=== PATIENT | female | born 1955 | race Caucasian/White ===

== ENCOUNTER → 2017-07-19 09:56 | Outpatient (CLI) | payer OTHER, SELFPAY ==
--- NOTE | 2017-07-19 10:00 | ECHOD_ITS ---
Reason For Study: MVP Procedure This was a 2D Doppler, Color Flow transthoracic echocardiogram. Exam performed in department. Left Ventricle Normal LV size. Left ventricular systolic function is normal. The estimated ejection fraction is 60 %. No regional wall motion abnormalities noted. Right Ventricle Normal RV size. Normal systolic function. Atria Normal left atrium. Normal right atrium. Mitral Valve Normal mitral valve. Mild (1+) eccentric mitral valve insufficiency. Tricuspid Valve Normal tricuspid valve. Mild (1+) tricuspid valve insufficiency. Pulmonary artery systolic pressure is 36 mmHg. Aortic Valve Trisinus/trileaflet aortic valve. Pulmonic Valve Normal pulmonic valve. Great Vessels Normal aortic root. The pulmonary artery is normal size. Normal inferior vena cava. Pericardium/Pleural No pericardial effusion. MMode/2D Measurements & Calculations LVIDd: 4.6 cm IVSd: 0.58 cm Ao root diam: 2.6 cm LVIDs: 2.8 cm LVPWd: 0.55 cm LA dimension: 3.9 cm RVDd: 3.0 cm FS: 38.7 % LAV(MOD-bp): 42.8 ml LA A4 area: 15.7 cm2 RA A4 area: 11.6 cm2 LAV(MOD-bp) Indexed: 26.2 ml/m2 LAV(MOD-sp2): 44.2 ml LAV(MOD-sp4): 38.4 ml Doppler Measurements & Calculations MV E max juanito: 93.8 cm/sec Lat Peak E' Juanito: 8.6 cm/sec Med Peak E' Juanito: 6.6 cm/sec MV A max juanito: 84.7 cm/sec E/E' lat: 10.8 E/E' med: 14.3 MV E/A: 1.1 Ao V2 max: 145.6 cm/sec LV V1 max: 111.6 cm/sec PA V2 max: 133.9 cm/sec Ao max P.5 mmHg LV V1 max P.0 mmHg Ao V2 mean: 99.5 cm/sec Ao mean P.3 mmHg Ao V2 VTI: 31.4 cm TR max juanito: 281.0 cm/sec TR max P.6 mmHg Interpretation Summary Normal LV size. Left ventricular systolic function is normal. The estimated ejection fraction is 60 %. Mild (1+) eccentric mitral valve insufficiency. Pulmonary artery systolic pressure is 36 mmHg. Ordering Physician: Jaron Roberts Referring Physician: Patrizia Nova Performed By: Tere Lamar, MARILEE, RVT
== END ==
PROVIDERS: Family Provider Internal Medicine; PCP Internal Medicine; Visit Provider Internal Medicine Cardiovascular Disease
DX: I10 Essential (primary) hypertension (principal); R00.2 Palpitations; E78.00 Pure hypercholesterolemia, unspecified
CPT/HCPCS: 93306

== ENCOUNTER → 2018-01-06 14:19 | Outpatient (CLI) | payer OTHER, SELFPAY ==
--- NOTE | 2018-01-06 14:25 | BD_ITS ---
STUDY: DUAL ENERGY X-RAY ABSORPTIOMETRY / DXA REASON FOR EXAM: Female, 62 years old. The patient is postmenopausal. Loss of height. TECHNIQUE: Bone Mineral Density (BMD) measurements of lumbar spine and bilateral hips were obtained. COMPARISON: Comparison is made with prior study dated December 12, 2014. FINDINGS: Lumbar Spine (L1-L4): g/cm2 (1.061) / T-score (-1.0) / Z-score (0.2) Findings are suggestive of normal bone density with a low fracture risk. Left Femur Total: g/cm2 (0.975) / T-score (-0.3) / Z-score (0.7) Left Femoral Neck: g/cm2 (0.807) / T-score (-1.7) / Z-score (-0.4) Right Femur Total: g/cm2 (0.924) / T-score (-0.7) / Z-score (0.3) Right Femoral Neck: g/cm2 (0.800) / T-score (-1.7) / Z-score (0.5) The T-Scores on the most recent prior examination were: Lumbar Spine (L1-L4): There has been improvement of bone density since the previous examination. Left Femur Total: which represents a worsening of 4.8%. Right Femur Total: which represents a worsening of 7.1%. BD/Dexa Bone Density Study IMPRESSION: The patient is considered osteopenic as outlined below according to World Edy Organization (WHO) criteria with a moderate fracture risk. There has been worsening of bone density since the previous examination. Reference Information: The T-score is the number of standard deviations above or below the standard which is normal for young adults at their peak bone mineral density. The World Health Organization (WHO) interprets the T-scores as follows: Above -1 Normal bone density Between -1 and -2.5 Osteopenia Equal to / or below -2.5 Osteoporosis As a practical clinical guideline, osteopenia may be graded as follows: Mild -1 through -1.5 Moderate -1.6 through -2.0 Severe -2.1 through -2.4 The Z-score is the number of standard deviations above or below age-matched controls. A Z-score of less than -1.5 would be considered abnormal. References: 1. NIH Osteoporosis and Related Bone Diseases http://www.osteo.org 2. International Society for Clinical Densitometry http://www.iscd.org 3. National Osteoporosis Foundation http://www.nof.org Electronically Signed: Az Ricardo MD at 15:32 EDT Tel [phone], Service support ,
== END ==
PROVIDERS: Family Provider Internal Medicine; PCP Internal Medicine; Visit Provider Internal Medicine
DX: Z78.0 Asymptomatic menopausal state (principal)
CPT/HCPCS: 77080

== ENCOUNTER 2018-02-18 08:00 | Outpatient (RCR) | payer OTHER, SELFPAY ==
--- NOTE | 2018-01-19 09:57 | HP.PTEVAL ---
Patient's Visit Information BERNARD EMERY is a 62 year old F referred to Physical Therapy by Patrizia Nova with a diagnosis of Bilateral Hip Pain. Date of Evaluation: 01/19/18 Physical Therapist: Nicole Pham - Visit Plan Frequency: 2x /Week Duration: 4 Weeks Plan: Focus on LE and core s/s- modality as needed - Subjective Subjective: Patient reports lots of hip pain bilateral- insidious onset starting Late October-Took a vacation in November and did a lot of walking and aggravated it. Wears special shoes when she is walking a lot. On the drive home she noticed that her foot was swollen but not painful-it went away. Both are the same amount of pain- right is more deep and juts down in the groin- sometimes the pain radiates to the knee. Does have discomfort in the left low back- will flare up when she gardens or twists. Pain is mostly located on the bursitis. Sleep: wakes her up at night. Worst: 10/10 Agg: walking, sitting for long periods of time and goes to stand up. Best: 0/10 Eases: Tylenol, rub them, or movement. Describes the pain as dull and achy and hot feeling. No N/T in the LE. No loss or change in bowel or bladder. X-rays at [facility]- no injection or medications from PT. 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 Likes to be active- walks with her sister but has been sedentary lately. PMhx: HTN Meds: cozar, atenalol, crestor, levothyroxin, prilosec, asprin - Objective Posture: Fh, RS- can correct with verbal cues. Gait: no deviation noted. Stairs: no deviation noted with asc/desc recip 8 stairs no HR. HR/TR: able. SLS: 30 sec without LOB. Sensation/ Reflex: wnl. palpation: tender along greater troch and into the gluts to the sacrum. ROM: WNl with the exception of IR of the right hip: decreased by 75%. Strength: Ankle: 5/5 knee: 5/5, Hip: 4/5 Core: fair minus. Pelvic alignment: WNL LLD: none - Goals Goal 1:: Patient will be I with HEP and progression Goal Time Frame: 4-6 Weeks Goal 2:: Patient will maintain proper posture t/o tx session to demo increased core s/s Goal Time Frame: 4-6 Weeks Goal 3:: Patient will report 0/10 pain for 1 week Goal Time Frame: 4-6 Weeks Goal 4:: Patient will demo 5/5 strength in LE where deficit Goal Time Frame: 4-6 Weeks - Rehabilitation Potential Physical Therapy Diagnosis: Patient presents with hypomobility- she has decreased ROM, strength and muscular endurance leading to increased pain with ADL's Rehabilitation Potential: Fair - Anticipated Interventions Patient/Client Instruction: Educate patient on: Benefits of Fitness Program Therapeutic Exercise to Include: Strength training, Endurance training, Balance training, Agility training, Body mechanics, Postural training, Flexibilty training, Gait and locomotor training, Dynamic Lumbar Stabilization TENS: Yes Cryotherapy (ice pack, ice massage): Yes Thermo therapy (hot pack): Yes Ultrasound (thermal/non thermal): Yes For the Purpose of:: To decrease pain Thank you for the opportunity to evaluate your patient. For Medicare and Medicare HMO plans, please review the plan of care and approve it. It will need to be FAXED BACK to us at [phone] for Medicare purposes. Please let me know if there are questions or concerns regarding this plan of care. Physician Signature: Date:
--- NOTE | 2018-02-18 08:25 | HP.PTDCSUM_ITS ---
HP - PT D/C Summary It has been my pleasure to treat BERNARD E EMERY under orders from Patrizia Nova , for the diagnosis of Bilateral Hip Pain for a total of 8 visit(s). Discharge Date: Please see the following information for a summary of their discharge status. - Subjective Subjective: Feels that she is improved and the right hip is less catchy and is gaining some strength. Worst: 06/16- its definatly better- [place] Sleep is sometimes a little more challenging when she has been moving around a lot. Feels that she wants to try a home exercise program and work on her endurance. - Pain RIGHT HIP Pain Intensity (Out of 10): 0 LEFT HIP Pain Intensity (Out of 10): 0 - Overall Improvement % Improvement: 40 - Objective Objective/Function: Posture: slight kyphosis. Gait: WNL. AROM: lumbar flex. WFL, lat. flex bilat. WFL slight stiffness reported, and rotation bilat. WFL slight stiffness to R, lumbar ext. slight decrease. R Hip decreased IR. Strength: LE WFL throughout - Goals Goal 1:: Patient will be I with HEP and progression Goal Progress: Goal Met Goal 2:: Patient will maintain proper posture t/o tx session to demo increased core s/s Goal Progress: Goal Met Goal 3:: Patient will report 0/10 pain for 1 week Goal Progress: Progressing Goal 4:: Patient will demo 5/5 strength in LE where deficit Goal Progress: Goal Met - Plan Plan: Discharge to I HEP. - D/C Information If there are questions or concerns regarding this patient's physical therapy, please feel free to call me at [phone]. Thank you for the referral of this patient. Sincerely, Nicole Pham
== END 2018-02-18 08:43 | disposition home or self-care (01) ==
LOC: PT 08:00
PROVIDERS: Family Provider Internal Medicine; PCP Internal Medicine; Visit Provider Internal Medicine
DX: M25.551 Pain in right hip (principal); M25.552 Pain in left hip; M54.31 Sciatica, right side; R10.30 Lower abdominal pain, unspecified
CPT/HCPCS: 97110; 97113; 97116; 97162; 97164

== ENCOUNTER → 2018-07-05 09:37 | Outpatient (CLI) | payer OTHER, SELFPAY ==
[2018-07-05 09:13] VITALS: BMI 30.7
[2018-07-05 11:00] LABS: Anion Gap 7 (5-15); BUN 16 mg/dL (7-18); BUN/Creat Ratio 20.6 RATIO (10-20); Calcium,Total 9.5 mg/dL (8.5-10.1); Chloride 106 mmol/L (98-107); Creatinine, Serum 0.78 mg/dL (0.55-1.02); EST Glomerular Filtration Rate 80 mL/min (>60); Est Glom Filt Rate - Afr Amer 97 mL/min (>60); Glucose 87 mg/dL (74-106); Potassium 4.4 mmol/L (3.5-5.1); Sodium Level 141 mmol/L (136-145)
== END ==
PROVIDERS: Family Provider Internal Medicine; PCP Internal Medicine; Referring Provider Internal Medicine Cardiovascular Disease; Visit Provider Internal Medicine Cardiovascular Disease
DX: I10 Essential (primary) hypertension (principal); R00.2 Palpitations
CPT/HCPCS: 36415; 80048; 84436; 84443

== ENCOUNTER 2019-01-12 19:25 | Emergency (ER) | payer OTHER, SELFPAY ==
[2018-07-05 09:13] VITALS: BMI 30.7
[2019-01-12 19:26] VITALS: BP 163/88; PULSE 82; RESP 16; TEMP 36.7; O2SAT 97; BMI 30.2
--- NOTE | 2019-01-12 19:52 | EKG12_ITS ---
Test Reason : GENERAL ILLNESS Blood Pressure : / mmHG Vent. Rate : 078 BPM Atrial Rate : 078 BPM P-R Int : 130 ms QRS Dur : 082 ms QT Int : 378 ms P-R-T Axes : 067 008 051 degrees QTc Int : 430 ms Normal sinus rhythm Normal ECG Confirmed by RUDY RIVERA ([id number]), mapping editor MARYJANE HOWARD ([id number]) on 01/16/2019 1:16:14 PM Referred By: ADRIAN Confirmed By:RUDY RIVERA
--- NOTE | 2019-01-12 20:25 | RAD_ITS ---
STUDY: X-RAY - ACUTE ABDOMINAL SERIES REASON FOR EXAM: Female, 63 years old. Discomfort. Bloating. TECHNIQUE: Single view of the chest. Supine, 1 view(s) of the abdomen were obtained. COMPARISON: Chest, May 30, 2017. FINDINGS: The lungs are well-expanded. There is a stable calcified granuloma in the right lung base. There is no new infiltrate or mass. Normal size heart. Normal mediastinum and esha. Normal visualized pulmonary arteries. There is atherosclerotic calcification of the aortic arch with tortuosity. There is a non-specific bowel gas pattern. . Seen throughout the colon. There is no small bowel dilatation. There is no colonic distention. There is no free air. The soft tissue structures of the abdomen and pelvis are unremarkable. Phleboliths are seen in the pelvis. Normal visualized osseous structures. RAD/Acute Abdomen Inc Chest IMPRESSION: 1. Right lower lobe calcified granuloma. There is no acute vertebral pulmonary findings. 2. No evidence of acute intra-abdominal process. Electronically Signed: Cesar Alvarado DO at 20:40 EDT Tel [phone], Service support ,
[2019-01-12 20:32] LABS: Bacteria 0 SEEN /hpf (None Seen); Mucous, Urine 0 SEEN /hpf (<or=2+); Red Blood Cells-Urine 0 SEEN /hpf (0-5); Squamous Epithelial Cells - UA 0 SEEN /hpf (5-10); White Blood Cells 0 SEEN /hpf (0-5)
[2019-01-12 20:40] LABS: Absolute Lymphocyte Count 2.15 X10^3/uL (0.83-4.51); Absolute Neutrophil Count 5.4 X10^3/uL (2.0-7.7); Basophil# 0.03 X10^3/uL; Basophil% 0.4 % (0-1); Eosinophil# 0.09 X10^3/uL; Eosinophils% 1.1 % (0-5); Hematocrit 36.7 % (37-47); Hemoglobin 12.2 g/dL (12.0-15.0); Lymphocyte # 2.15 X10^3/ul (4.0); Lymphocyte % 26.6 % (19-41); Mean Corp Hgb Conc 33.2 g/dL (32-36); Mean Corpuscular Hgb 29.2 pg (27.0-32.0); Mean Corpuscular Volume 87.8 fL (81-99); Mean Platelet Vol. 10.8 fl (6.2-12.0); Monocyte# 0.42 X10^3/uL; Monocyte% 5.2 % (0-10); NRBC Flagged by Analyzer 0 % (0-5); Neutrophil # 5.37 X10^3/uL (2.7-7.7); Neutrophil % 66.5 % (47-70); Platelet Count 282 K/mm3 (150-450); RBC Distribution Width CV 12.6 % (11.6-14.6); RBC Distribution Width SD 40.5 fl (35.1-43.9); Red Blood Count 4.18 M/mm3 (4.2-5.4); White Blood Count 8.1 K/mm3 (4.4-11.0)
[2019-01-12 20:43] LABS: Color, Urine Straw (Yellow); Glucose, Dipstick Normal (Normal); Ketone-Dipstick Negative (Negative); Leukocyte Esterase-Dipstick Negative /ul (Negative); Nitrite-Dipstick Negative (Negative); Occult Blood-Urine Negative /ul (Negative); Protein-Dipstick Negative (Negative); Urine Bilirubin Dipstick Negative (Negative); Urine Clarity Clear (Clear); Urine Urobilinogen Normal (Normal); Urine pH 6.5 (5.0 - 8.0)
[2019-01-12 20:55] LABS: Anion Gap 6 (5-15); BUN 15 mg/dL (7-18); BUN/Creat Ratio 17.5 RATIO (10-20); Calcium,Total 9.7 mg/dL (8.5-10.1); Chloride 106 mmol/L (98-107); Creatinine, Serum 0.86 mg/dL (0.55-1.02); EST Glomerular Filtration Rate 72 mL/min (>60); Est Glom Filt Rate - Afr Amer 87 mL/min (>60); Estimated Creatinine Clearance 73.79 ml/min; Glucose 93 mg/dL (74-106); Potassium 3.8 mmol/L (3.5-5.1); Sodium Level 140 mmol/L (136-145)
--- NOTE | 2019-01-12 21:10 | ED.DCSUM_ITS ---
History of Present Illness Chief Complaint: General Illness Detail of Chief Complaint: High blood pressure, abdominal bloating and felt funny drinking liquid Informant: Patient Onset: Days Context: Gradual Onset Timing: - - Read HPI Quality: Read HPI Location: Generalized abdominal, Current Severity: Mild Maximum Severity: Moderate Worsened by: Nothing Relieved by: Nothing Associated Symptoms: Possible nausea Narrative: Patient is a 63-year-old woman with a history of hypertension who presents because her blood pressure was 200/100. She denies headache. Denies visual, ocular auditory symptoms. No trouble with speech or swallowing. She states when she drinks liquids she felt funny. She had no pain. She did not have difficulty swallowing with drooling or choking. She denied cardiac or respiratory symptoms. She does have history of PSVT. There is family history of coronary disease. She denies nausea, vomiting diarrhea. She denies constipation. She denies dysuria, frequency, urgency or hematuria. She denies anorexia. There is no history of trauma. She denies weight gain or weight loss. She denies night sweats. She denies back pain. Prior similar symptoms: No Recent Illness/Hospitalization: No - Past Medical History (1) Elevated blood-pressure reading without diagnosis of hypertension Status: Acute (2) Hypercholesterolemia Status: Chronic (3) Intermittent palpitations Status: Chronic (4) Obesity (BMI 30.0-34.9) Status: Chronic (5) Paroxysmal supraventricular tachycardia Status: Chronic Past Medical History - Allergies and Home Meds Allergies/Adverse Reactions: Allergies niacin [From Niaspan Extended-Release] Adverse Reaction (Verified 01/12/19 19:29) Shortness of breath Primary Care Physician: Patrizia Nova MD [Primary Care Provider] - Prior records reviewed: Yes Surgical History: noncontributory Lives: Spouse/ Significant Other Smoking Status: Never smoker Alcohol: None Drugs: None Review of Systems General: Denies: Chills, Fever, Sweats Eyes: Denies: Visual changes - bilaterally, Blurred Vision - bilaterally, Diplopia ENT: Denies: Bilateral ear pain, Rhinorrhea, Sore throat Cardiovascular: Denies: Chest pain, Palpitations, Heart racing Respiratory: Denies: Dyspnea, Cough, Dyspnea on exertion Gastrointestinal: Reports: Abdominal pain. Denies: Nausea, Vomiting, Diarrhea, Constipation, Melena, Hematochezia, -, - Genitourinary: Denies: Dysuria, Hematuria, Frequency Musculoskeletal: Denies: Myalgias, Arthralgias, Neck pain, Back pain, Swelling, Extremity Pain Skin: Denies: Rash, Abrasions, Wounds Neurological: Denies: Headache, Weakness, Numbness Psych: Denies: Depression Endocrine: Reports: - - Does report nocturia. Denies: Polyuria, Polydipsia Hematologic: Denies: Easy bruising, Easy bleeding Allergy: Denies: Uticaria, Swelling of the mouth, Swelling of the tongue Physical Exam Vital Signs/Narrative: Vital Signs Temp Pulse Resp BP Pulse Ox 01/12/19 19:26 98.0 F 82 16 163/88 H 97 Inital Vital Signs reviewed: Yes General: Well nourished, Well developed, No Acute Distress Head: Normocephalic, Atraumatic Eyes: Perrl, EOMI. Negative for: Pale conjunctiva, Scleral icterus ENT: Moist mucous membranes, No rhinorrhea, TM's clear Neck: Supple, Nontender Cardiovascular: Regular rate, Regular rhythm, No murmurs, Normal S1, Normal S2 Respiratory: No distress, CTA bilaterally, Chest nontender Abdomen: Soft, Nontender, Nondistended, Normal bowel sounds, No masses, - - Abdo men is slightly tympanitic. Rectal: Deferred Back: Nontender, Normal Inspection. Negative for: CVA tenderness Extremities: Nontender, No edema Skin: Normal color, No rash, No Trauma. Negative for: Cyanosis, Diaphoresis, Jaundice Neurological: Alert, Oriented x3, Cranial nerves II-XII grossly intact, Normal Strength, Normal Sensation, Normal DTR, Normal Gait Psychological: Normal affect, Normal Mood Diagnostic/Tx/Re-eval Chest X-Ray - ED: Read by Radiologist Impressions Acute Abdomen Series 01/12/19 20:25 IMPRESSION: 1. Right lower lobe calcified granuloma. There is no acute vertebral pulmonary findings. 2. No evidence of acute intra-abdominal process. Electronically Signed: Cesar Alvarado DO at 20:40 EDT Tel [phone], Service support , 01/12/19 20:25 Acute Abdomen Inc Chest [RAD] Stat Laboratory Results 01/12/19 01/12/19 01/12/19 20:17 20:17 20:20 WBC 8.1 RBC 4.18 L Hgb 12.2 Hct 36.7 L MCV 87.8 MCH 29.2 MCHC 33.2 RDW Std Deviation 40.5 RDW Coeff of [place] 12.6 Plt Count 282 MPV 10.8 Immature Gran % (Auto) 0.200 Neut % (Auto) 66.5 Lymph % (Auto) 26.6 [place] % (Auto) 5.2 Eos % (Auto) 1.1 Baso % (Auto) 0.4 Absolute Neuts (auto) 5.4 Absolute Lymphs (auto) 2.15 Nucleated RBC % 0 Sodium 140 Potassium 3.8 Chloride 106 Carbon Dioxide 28.0 Anion Gap 6 BUN 15 Creatinine 0.86 Estim Creat Clear Calc 73.79 Est GFR (MDRD) Af Amer 87 Est GFR (MDRD) Non-Af 72 BUN/Creatinine Ratio 17.5 Glucose 93 Calcium 9.7 Urine Color Straw Urine Clarity Clear Urine pH 6.5 Ur Specific [place] 1.010 Urine Protein Negative Urine Glucose (UA) Normal Urine Ketones Negative Urine Occult Blood Negative Urine Nitrite Negative Urine Bilirubin Negative Urine Urobilinogen Normal Ur Leukocyte Esterase Negative Urine RBC 0 SEEN Urine WBC 0 SEEN Ur Squamous Epith Cells 0 SEEN Urine Bacteria 0 SEEN Urine Mucus 0 SEEN Three-view x-ray of the abdomen was reviewed by me. The film was interpreted per my review. There is increased fecal stasis. No acute abnormality is noted. There is no evidence of endorgan injury. - Medical Decision Making Because patient complains of bloatedness she is distended abdominal series was obtained. There is no evidence of ileus, obstruction or any significant abnormality. There is increased fecal stasis noted right side. Blood work is unremarkable with no evidence of endorgan injury. Most recent blood pressure is 160 systolic. This does not mandate immediate urgent therapy. Patient was informed of her results. ED Disposition - Plan for ED Patient: Disposition: Home or Assisted Living Diagnosis: Generalized abdominal discomfort, Constipation, Hypertension Instructions: HYPERTENSION, Established Referrals: Patrizia Nova MD [Primary Care Provider] - 5-7 Days Additional Instructions: Increase fiber in your diet. Recommend Metamucil or MiraLAX 2-3 times a day for the next week.
[2019-01-12 21:37] VITALS: BP 152/82; RESP 16
== END 2019-01-12 21:38 | disposition home or self-care (01) ==
PROVIDERS: Emergency Provider Emergency Medicine; Family Provider Internal Medicine; PCP Internal Medicine
DX: R10.84 Generalized abdominal pain (principal); K59.00 Constipation, unspecified; I10 Essential (primary) hypertension; R35.1 Nocturia; E66.9 Obesity, unspecified; I47.1 Supraventricular tachycardia; E78.00 Pure hypercholesterolemia, unspecified; Z79.899 Other long term (current) drug therapy
CPT/HCPCS: 74022; 80048; 81001; 85025; 93005; 99283; A4216

== ENCOUNTER → 2019-07-04 12:08 | Outpatient (CLI) | payer OTHER, SELFPAY ==
[2019-07-04 08:21] VITALS: BMI 30.9
[2019-07-04 14:26] LABS: AST(SGOT) 20 U/L (15-37); Alanine Aminotransfer ALT/SGPT 34 U/L (13-56); Albumin, Serum 4.4 g/dL (3.2-5.0); Alkaline Phosphatase 93 U/L (45-117); Bilirubin, Direct 0.15 mg/dL (0.00-0.30); Cholesterol 255 mg/dL (200); Globulin 3.5 g/dL (2.2-4.2); High Density Lipoprotein 59 mg/dL; Protein, Total 7.9 g/dL (6.4-8.2); Triglycerides 100 mg/dL; Very Low Density Lipoprotein 20 mg/dL (5-40)
== END ==
PROVIDERS: PCP Internal Medicine; Referring Provider Internal Medicine Cardiovascular Disease; Visit Provider Internal Medicine Cardiovascular Disease
DX: E78.5 Hyperlipidemia, unspecified (principal)
CPT/HCPCS: 36415; 80061; 80076

== ENCOUNTER → 2019-07-21 12:00 | Outpatient (CLI) | payer OTHER, SELFPAY ==
[2019-07-04 08:21] VITALS: BMI 30.9
--- NOTE | 2019-07-21 12:13 | BI_ITS ---
MAMMOGRAPHY - BILATERAL SCREENING REASON FOR EXAM: Female, 63 years old. Routine annual screening examination. PERTINENT HISTORY: Aunt with breast cancer. Remote bilateral breast reduction surgery. TECHNIQUE: Digital bilateral breast rashuan (3D mammographic acquisition) in the CC and MLO projections. 2-D mediolateral oblique (MLO) and craniocaudad (CC) views of both breasts were obtained. CAD: Full Field Digital Mammography with Computer Added Detection was performed. COMPARISON: Comparison is made with prior examination dated March 18, 2017 and December 12, 2014. FINDINGS: Breast Composition: The breasts are heterogeneously dense, which may obscure small masses. There are no dominant masses or suspicious calcifications. Stable small benign-appearing bilateral axillary lymph nodes. No other significant abnormalities are identified. There has been no significant change since the prior study. BI/SCREEN MAMM (CAD) W/RASHAUN BILAT IMPRESSION: Stable bilateral screening mammogram. Yearly follow-up mammogram recommended. (A) ASSESSMENT CATEGORY: BIRADS Category 2: Benign. A letter regarding these results will be sent to the patient by the facility within 30 days. Approximately 10% of breast cancers are not detected by mammography. A normal mammogram should not delay biopsy of a clinically suspicious abnormality. [id number] Electronically Signed: Az Ricardo, at 13:00 EST , Service support ,
== END ==
PROVIDERS: PCP Internal Medicine; Referring Provider Internal Medicine; Visit Provider Internal Medicine
DX: Z12.31 Encounter for screening mammogram for malignant neoplasm of breast (principal)
CPT/HCPCS: 77063; 77067

== ENCOUNTER 2021-04-02 23:32 | Observation (INO) | payer OTHER, SELFPAY ==
[2021-04-02 23:33] VITALS: BP 189/83; PULSE 86; RESP 18; TEMP 36.6; O2SAT 100; BMI 31.3
[2021-04-02 23:42] VITALS: BP 171/92; PULSE 99; RESP 14; O2SAT 100
--- NOTE | 2021-04-02 23:44 | EKG12_ITS ---
Test Reason : CP Blood Pressure : / mmHG Vent. Rate : 096 BPM Atrial Rate : 096 BPM P-R Int : 138 ms QRS Dur : 084 ms QT Int : 378 ms P-R-T Axes : 067 015 075 degrees QTc Int : 477 ms Normal sinus rhythm ST & T wave abnormality, consider lateral ischemia Prolonged QT Abnormal ECG Confirmed by TED GRIMM, ELIAN ([id number]), editor at large MARYJANE HOWARD ([id number]) on 04/04/2021 9:34:05 AM Referred By: ANALI Confirmed By:ELIAN JEAN MD
--- NOTE | 2021-04-02 23:44 | RAD_ITS ---
STUDY: X-RAY CHEST REASON FOR EXAM: Female, 65 years old. chest pain TECHNIQUE: 1 view COMPARISON: 01/12/2019 FINDINGS: Cardiomediastinal silhouette is unremarkable. Costophrenic angles are sharp. Small calcified granulomas noted in the right lung base. Lungs are otherwise clear. The trachea is midline. There is no pneumothorax. The bones are grossly intact. RAD/Chest 1 View (Portable) IMPRESSION: No acute cardiopulmonary process. Electronically Signed: Glenroy Best MD at 1:03 EDT Tel , Service support ,
[2021-04-02 23:50] LABS: Absolute Neutrophil Count 4.8 X10^3/uL (2.0-7.7); Basophil# 0.03 X10^3/uL; Basophil% 0.4 % (0-1); Eosinophil# 0.15 X10^3/uL; Eosinophils% 1.9 % (0-5); Hematocrit 37.8 % (37-47); Hemoglobin 12.5 g/dL (12.0-15.0); Mean Corp Hgb Conc 33.1 g/dL (32-36); Mean Corpuscular Hgb 28.2 pg (27.0-32.0); Mean Corpuscular Volume 85.3 fL (81-99); Mean Platelet Vol. 10.6 fl (6.2-12.0); Monocyte# 0.56 X10^3/uL; NRBC Flagged by Analyzer 0 % (0-5); Neutrophil # 4.84 X10^3/uL (2.7-7.7); Neutrophil % 60.4 % (47-70); Platelet Count 298 K/mm3 (150-450); RBC Distribution Width CV 12.5 % (11.6-14.6); RBC Distribution Width SD 38.7 fl (35.1-43.9); Red Blood Count 4.43 M/mm3 (4.2-5.4)
[2021-04-02] MEDS: Aspirin 81 MG TAB.CHEW 324 MG PO (23:55)
[2021-04-03] VITALS (9 sets, daily range): BP systolic 133–160; BP diastolic 60–87; PULSE 63–101; RESP 14–20; TEMP 35.8–37.3; O2SAT 98–100; BMI 31.3
[2021-04-03 00:17] LABS: Anion Gap 8 (5-15); BUN 14 mg/dL (7-18); Calcium,Total 9.8 mg/dL (8.5-10.1); Chloride 108 mmol/L (98-107); Creatinine, Serum 0.78 mg/dL (0.55-1.02); EST Glomerular Filtration Rate 80 mL/min (>60); Est Glom Filt Rate - Afr Amer 96 mL/min (>60); Estimated Creatinine Clearance 79.29 ml/min; Glucose 112 mg/dL (74-106); Potassium 3.5 mmol/L (3.5-5.1); Sodium Level 142 mmol/L (136-145); Troponin-I HS 5 pg/mL (3.0-54.0)
--- NOTE | 2021-04-03 00:33 | ED.VIS.CHEST ---
HPI History of Present Illness Chief Complaint: Chest Pain Informant: patient Narrative Narrative: Patient presents with elevated blood pressures. She thinks she was about 190s. She checked it because she just did not feel right today. She developed episode of chest pressure that radiated to the left side of her neck this evening. It is better now but not completely gone. She might of had very mild dyspnea with this. No nausea vomiting or diaphoresis. No back pain. She had an episode similar to this about a week ago that resolved on its own. She does not have a history of known heart disease. She had a heart catheterization but she thinks it was probably 20 years ago. There is a family history of aortic dissection Marfan's. However, she just saw a specialist up in [place] earlier this year in July. They did extensive evaluation including CAT scan of the chest. They see no indication of Marfan's or aortic root problems in her whatsoever. She does have a history of high blood pressure and cholesterol. Non-smoker. [facility] Medical History (Updated 04/03/21 @ 01:[address] Long Musa MD) Daytime somnolence Elevated blood-pressure reading without diagnosis of hypertension Essential (primary) hypertension Generalized anxiety disorder Hiatal hernia Hyperlipidemia Hypothyroid LPRD (laryngopharyngeal reflux disease) Mitral valve disorder Obesity (BMI 30.0-34.9) Paroxysmal supraventricular tachycardia Snoring Snoring Vitamin D deficiency Home Medications omeprazole 20 mg capsule,delayed release 20 mg PO QDAY 06/30/17 [History Last Taken Unknown] rosuvastatin 20 mg tablet 40 mg PO QDAY tab 07/05/18 [History Last Taken Unknown] levothyroxine 75 mcg tablet 75 mcg PO DAILY tab 07/04/19 [History Last Taken Unknown] atenolol 25 mg PO DAILY 04/02/21 [History Last Taken Unknown] coenzyme Q10 200 mg PO DAILY 04/02/21 [History Last Taken Unknown] losartan 75 mg PO DAILY 04/02/21 [History Last Taken Unknown] Allergy/AdvReac Type Severity Reaction Status Date / Time niacin AdvReac Shortness Verified 04/02/21 23:35 [From Niaspan of breath Extended-Release] Family History Mother Aortic aneurysm and dissection Brother Aortic aneurysm and dissection Other Marfan syndrome Surgical History History of bilateral breast reduction surgery (2009) History of History of carpal tunnel release History of left heart catheterization (2003) hx of tendon repair Social History Smoking Status: Never smoker ROS ROS ED Constitutional Constitutional ED: Denies chills or fever(s) Eyes Eyes: Denies blurry vision ENT ENT ED: Denies rhinorrhea or sore throat Cardiovascular Cardiovascular: Reports chest pain Respiratory/Chest Respiratory/Chest: Reports dyspnea; Denies cough or sputum Gastrointestinal Gastrointestinal: Denies abdominal pain, nausea or vomiting Genitourinary Genitourinary ED: Denies hematuria Musculoskeletal Musculoskeletal: Reports neck pain and other Details: Chest pressure did radiate toward the left side of her neck. It did not go to her back. ; Denies arthralgias, back pain or myalgias Integumentary Denies rash Neurologic Neurologic: Denies headache(s), paresthesias or weakness Psychiatric Psychiatric: Reports anxiety and other Details: Patient states she has had some episodes like this that she thinks are related to anxiety. She will take small dose of benzodiazepine occasionally for symptoms. Endocrine Endocrinology: Denies polydipsia or polyuria Hematologic/Lymphatic Hematologic/Lymphatic: Denies easy bleeding or easy bruising Allergic/Immunologic Allergic/Immunologic ED: Denies mouth swelling or urticaria EXAM Physical Exam Const Vital Signs: 04/02/21 23:33 04/02/21 23:38 04/02/21 23:42 Temperature 97.9 F Temperature Source Temporal Pulse Rate 86 99 Respiratory Rate 18 14 Respiratory Effort Normal Non-Labored Respiratory Pattern Normal Blood Pressure 189/83 H 171/92 H Blood Pressure Mean 118 118 Pulse Ox 100 100 Oxygen Delivery Method Room Air Room Air 04/03/21 01:07 Temperature Temperature Source Pulse Rate 76 Respiratory Rate 16 Respiratory Effort Respiratory Pattern Blood Pressure 136/79 H Blood Pressure Mean 98 Pulse Ox 99 Oxygen Delivery Method Room Air Positive well nourished and well developed General Appearance ED: well developed and NAD HEENT Reports moist mucous membranes Eyes General Eye ED: Negative for pale conjunctiva or scleral icterus Neck no JVD Chest Wall inspection of chest normal and palpation of chest normal Chest: Negative for tenderness Resp normal respiratory effort and clear to auscultation bilaterally Effort and Inspection: Negative for respiratory distress Auscultation: Negative for rales, rhonchi or wheezes Cardio regular rate and regular rhythm Rate: other Other Details: Heart is regular. Not tachycardic. There is no murmur gallop rub or muffled tones. GI normal to inspection, nondistended, normoactive bowel sounds, soft to palpation and non-tender Back/Spine no CVA tenderness Extremity normal to inspection General Extremety ED: Negative for edema or tenderness General Extremity: Negative for edema Neuro Sensorium / Orientation: awake and alert Psych mental status grossly normal Skin no rashes or lesions noted Heart Score History: Moderately Suspicious ECG: Significant ST-Depression Age: >45 - <65 years Risk Factors: 1 or 2 Risk Factors Troponin: </= Normal Limit Score: 5 MDM MDM MDM Narrative Medical decision making narrative: Patient's blood work is not showing any marked abnormalities including negative troponin. X-ray is negative. My concern is that her EKG is seem to show some new lateral symptoms that were not there back in 12 January 2019. She also has a heart score of 5 contributed by this EKG. She has not had cardiac evaluation in many many years. I have hospitalist on page. With her elevated heart score and new EKG change I think hospitalization is appropriate for further evaluation. Lab Data Attestation: I reviewed the patient's lab results. Labs: Laboratory Results - last 24 hr 04/02/21 04/02/21 23:43 23:43 WBC 8.0 RBC 4.43 Hgb 12.5 Hct 37.8 MCV 85.3 MCH 28.2 MCHC 33.1 RDW Std Deviation 38.7 RDW Coeff of [place] 12.5 Plt Count 298 MPV 10.6 Immature Gran % (Auto) 0.300 Neut % (Auto) 60.4 Lymph % (Auto) 30.0 [place] % (Auto) 7.0 Eos % (Auto) 1.9 Baso % (Auto) 0.4 Absolute Neuts (auto) 4.8 Absolute Lymphs (auto) 2.40 Nucleated RBC % 0 Sodium 142 Potassium 3.5 Chloride 108 H Carbon Dioxide 26.0 Anion Gap 8 BUN 14 Creatinine 0.78 Estim Creat Clear Calc 79.29 Est GFR (MDRD) Af Amer 96 Est GFR (MDRD) Non-Af 80 BUN/Creatinine Ratio 18.0 Glucose 112 H Calcium 9.8 Troponin I High Sens 5 Radiography Diagnostic Testing: Clinical Impression(s) from Imaging Studies Chest X-Ray 04/02/21 23:44 IMPRESSION: No acute cardiopulmonary process. Electronically Signed: Glenroy Best MD at 1:03 EDT Tel , Service support , EKG Initial EKG: Comments: EKG done for chest pain read by me shows normal sinus rhythm with a rate of 96. There are some nonspecific changes but there is also mild small amount of lateral ST depression. This is between V3 and V6 but mostly in V5. This is a new change since 12 January 2019. GA interval interval QRS duration and QTc normal. There is no sign of ST elevation. No ectopy. Discharge Plan Dx/Rx/DC Orders Clinical Impression: Chest pain Disposition Disposition: Acute Care [facility]
--- NOTE | 2021-04-03 01:16 | EKG12_ITS ---
Test Reason : REPEAT Blood Pressure : / mmHG Vent. Rate : 071 BPM Atrial Rate : 071 BPM P-R Int : 132 ms QRS Dur : 084 ms QT Int : 386 ms P-R-T Axes : 064 010 046 degrees QTc Int : 419 ms Normal sinus rhythm with sinus arrhythmia Normal ECG Confirmed by TED GRIMM, ELIAN ([id number]), sports editor MARYJANE HOWARD ([id number]) on 04/04/2021 9:34:36 AM Referred By: ANALI Confirmed By:ELIAN JEAN MD
--- NOTE | 2021-04-03 01:42 | HP.PCM_ITS ---
Documented by User: DAVID Garcia 04/03/21 01:54 HPI - General General Date of Admission: 04/03/21 Date of Service: 04/03/21 Chief Complaint: Chest pain HPI Narrative BERNARD EMERY, is a 65 F who presents with complaints of chest pain that initially was 8 out of 10. Patient states that she had an episode similar to this approximately 1 week ago. Patient states that she began to have left sided chest pain that radiated into her left neck. Patient states that at that time she also felt dyspneic and her blood pressure was elevated. Patient denies nausea vomiting or diaphoresis. Patient states that she just had an extensive work-up for cardiac issues earlier this year due to a family history of aortic dissection and Marfan syndrome. [facility] Medical History (Updated 04/03/21 @ 01:48 by DAVID Garcia) Daytime somnolence Elevated blood-pressure reading without diagnosis of hypertension Essential (primary) hypertension Generalized anxiety disorder Hiatal hernia Hyperlipidemia Hypothyroid LPRD (laryngopharyngeal reflux disease) Mitral valve disorder Obesity (BMI 30.0-34.9) Paroxysmal supraventricular tachycardia Snoring Snoring Vitamin D deficiency Home Medications omeprazole 20 mg capsule,delayed release 20 mg PO QDAY 06/30/17 [History Last Taken Unknown] rosuvastatin 20 mg tablet 40 mg PO QDAY tab 07/05/18 [History Last Taken Unknown] levothyroxine 75 mcg tablet 75 mcg PO DAILY tab 07/04/19 [History Last Taken Unknown] atenolol 25 mg PO DAILY 04/02/21 [History Last Taken Unknown] coenzyme Q10 200 mg PO DAILY 04/02/21 [History Last Taken Unknown] losartan 75 mg PO DAILY 04/02/21 [History Last Taken Unknown] Allergy/AdvReac Type Severity Reaction Status Date / Time niacin AdvReac Shortness Verified 04/02/21 23:35 [From Niaspan of breath Extended-Release] Family History Mother Aortic aneurysm and dissection Brother Aortic aneurysm and dissection Other Marfan syndrome Surgical History History of bilateral breast reduction surgery (2009) History of History of carpal tunnel release History of left heart catheterization (2003) hx of tendon repair Social History Smoking Status: Never smoker alcohol intake: current alcohol intake frequency: holidays/special occasions only substance use type: does not use ROS Constitutional Constitutional: Denies anorexia, chills, fatigue, malaise or weakness Cardiovascular Cardiovascular: Reports chest pain, dyspnea and radiating jaw, neck or arm pain; Denies edema, palpitations or syncope Respiratory/Chest Respiratory/Chest: Denies cough, hemoptysis, shortness of breath at rest, shortness of breath with exertion or wheezing Gastrointestinal Gastrointestinal: Denies abdominal pain, constipation, diarrhea, nausea or vomiting Genitourinary Genitourinary: Denies dysuria Musculoskeletal Musculoskeletal: Denies back pain, extremity pain, joint pain, joint stiffness or joint swelling Integumentary Integumentary: Denies dry skin Neurologic Neurologic: Denies abnormal gait, abnormal speech, confusion or dizziness Psychiatric Psychiatric: Denies anxiety Endocrine Endocrinology: Denies change in body appearance Hematologic/Lymphatic Hematologic/Lymphatic: Denies anemia Vital Signs Vital Signs Vital Signs: 04/02/21 23:33 04/02/21 23:38 04/02/21 23:42 Temperature 97.9 F Temperature Source Temporal Pulse Rate 86 99 Respiratory Rate 18 14 Respiratory Effort Normal Non-Labored Respiratory Pattern Normal Blood Pressure 189/83 H 171/92 H Blood Pressure Mean 118 118 Pulse Ox 100 100 Oxygen Delivery Method Room Air Room Air 04/03/21 01:07 Temperature Temperature Source Pulse Rate 76 Respiratory Rate 16 Respiratory Effort Respiratory Pattern Blood Pressure 136/79 H Blood Pressure Mean 98 Pulse Ox 99 Oxygen Delivery Method Room Air Weight Weight: 150 lb Body Mass Index (BMI) 31.3 Physical Exam Const alert, oriented x3 and no apparent distress General Appearance: cooperative HEENT normocephalic and head/scalp atraumatic Eyes conjunctivae normal and no scleral icterus Neck supple and no JVD General: trachea midline Resp normal respiratory effort, normal air movement and clear to auscultation bilaterally Cardio regular rate, regular rhythm, S1 normal heart sound, S2 normal heart sound and peripheral pulses 2+ throughout GI normal to inspection, nondistended, normoactive bowel sounds, soft to palpation and non-tender Extremity normal capillary refill and no clubbing, cyanosis or edema General Extremity: no tenderness to palpation of joints or extremities Skin General Skin Exam: no breakdown and turgor normal Lesions: no lesions Rashes: no rashes Neuro moves all extremities, no focal motor deficits and no sensory deficits noted Speech: speech normal Motor Exam: Negative for general weakness Psych thought process normal, cooperative and affect normal Appearance: appropriate Results Lab / Micro Data Result Diagrams: 04/02/21 23:43 04/02/21 23:43 Labs: Laboratory Results - last 24 hr 04/02/21 23:43: WBC 8.0, RBC 4.43, Hgb 12.5, Hct 37.8, MCV 85.3, MCH 28.2, MCHC 33.1, RDW Std Deviation 38.7, RDW Coeff of [place] 12.5, Plt Count 298, MPV 10.6, Immature Gran % (Auto) 0.300, Neut % (Auto) 60.4, Lymph % (Auto) 30.0, [place] % (Auto) 7.0, Eos % (Auto) 1.9, Baso % (Auto) 0.4, Absolute Neuts (auto) 4.8, Absolute Lymphs (auto) 2.40, Nucleated RBC % 0 04/02/21 23:43: Sodium 142, Potassium 3.5, Chloride 108 H, Carbon Dioxide 26.0, Anion Gap 8, BUN 14, Creatinine 0.78, Estim Creat Clear Calc 79.29, Est GFR (MDRD) Af Amer 96, Est GFR (MDRD) Non-Af 80, BUN/Creatinine Ratio 18.0, Glucose 112 H, Calcium 9.8, Troponin I High Sens 5 Radiology Impression Chest X-Ray 04/02/21 23:44 IMPRESSION: No acute cardiopulmonary process. Electronically Signed: lGenroy Best MD at 1:03 EDT Tel , Service support , Assessment & Plan Assessment/Plan (1) Chest pain: QUALIFIERS: Chest pain type: unspecified Qualified Code(s): R07.9 - Chest pain, unspecified PLAN: 1. Chest pain -Admit to PCU for cardiac monitoring -Trend cardiac enzymes, initial level 5 -Treadmill stress test ordered for a.m. -CBC, BMP, lipid, magnesium level ordered for a.m. -N.p.o. -Oxygen per protocol -Twelve-lead EKG ordered for a.m., ST depression noted on initial EKG in ER. -Normal saline 75 mL/h x 1 day 2. Hypothyroidism -Patient reports that she got her TSH checked earlier this week and it was within normal range -Continue Synthroid 3. Hypertension -Continue atenolol and losartan -Vital signs per protocol 4. Hyperlipidemia -Lipid panel ordered for a.m. -Continue rosuvastatin DVT prophylaxis-no pharmacological prophylaxis indicated at this time This patient was seen by DAVID Garcia under the supervision of Dr. Wilson Documented by User: Dr. Jaya Wilson MD 04/03/21 02:07 HPI - General General Date of Admission: 04/03/21 [facility] Medical History (Updated 04/03/21 @ 01:48 by TEJA GarciaC) Daytime somnolence Elevated blood-pressure reading without diagnosis of hypertension Essential (primary) hypertension Generalized anxiety disorder Hiatal hernia Hyperlipidemia Hypothyroid LPRD (laryngopharyngeal reflux disease) Mitral valve disorder Obesity (BMI 30.0-34.9) Paroxysmal supraventricular tachycardia Snoring Snoring Vitamin D deficiency Home Medications omeprazole 20 mg capsule,delayed release 20 mg PO QDAY 06/30/17 [History Last Taken Unknown] rosuvastatin 20 mg tablet 40 mg PO QDAY tab 07/05/18 [History Last Taken Unknown] levothyroxine 75 mcg tablet 75 mcg PO DAILY tab 07/04/19 [History Last Taken Unknown] atenolol 25 mg PO DAILY 04/02/21 [History Last Taken Unknown] coenzyme Q10 200 mg PO DAILY 04/02/21 [History Last Taken Unknown] losartan 75 mg PO DAILY 04/02/21 [History Last Taken Unknown] Allergy/AdvReac Type Severity Reaction Status Date / Time niacin AdvReac Shortness Verified 04/02/21 23:35 [From Niaspan of breath Extended-Release] Family History Mother Aortic aneurysm and dissection Brother Aortic aneurysm and dissection Other Marfan syndrome Surgical History History of bilateral breast reduction surgery (2009) History of History of carpal tunnel release History of left heart catheterization (2003) hx of tendon repair Social History Smoking Status: Never smoker alcohol intake: current alcohol intake frequency: holidays/special occasions only substance use type: does not use Results Lab / Micro Data Result Diagrams: 04/02/21 23:43 04/02/21 23:43 Charges/Coding Addendum Addendum: Patient was seen and examined independently. I agree with assessment and plan by DAIVD Garcia In summary patient is a 65-year-old female with a significant history of hyperlipidemia; hypertension and family history of heart disease who presents emergency department with 1 day history of progressively worsening excruciating epigastric pain that radiated to her chest and into her neck into her shoulder blades. Associated with symptom is nausea without vomiting; and malaise. She denies diaphoresis. The same symptoms occurred about a week ago. At home she checked her blood pressure and her blood pressure was 170/90. She thought that her symptom may be due to anxiety so she took some previously prescribed lorazepam (prescribed in about 2018) Patient reports that recently (a week ago) her losartan was increased to 75 mg daily. She is on atenolol 25 mg daily. She reported at times her pulse dropped into the 50s and she feels it. She is on Synthroid for hypothyroidism. She reports a normal TSH 3 days ago. She reports a normal cardiac cath. 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 Physical exam: General: Well-nourished, well-developed. Head: Normocephalic, atraumatic, no tenderness Eyes: PERRLA, EOMI ENT, no trauma, moist mucous membranes, no rhinorrhea Neck: Nontender, full range of motion, no spinal tenderness, deformities, step- off CVS: Regular rate and rhythm. S1-S2 present. No murmur, gallop or rub. Respiratory : clear to auscultation bilaterally, chest wall nontender, no wheezing Abdomen: Soft, nontender, nondistended, normal bowel sounds, no masses : Deferred Back: Nontender, no CVA tenderness, no midline spinal tenderness, deformities, step-offs Extremities: Nontender full range of motion, no trauma Skin: Normal color, no trauma, abrasions Neuro: Alert, oriented, cranial nerves II through XII grossly intact. Psychiatry: Normal mood. Normal affect. Not depressed. Not anxious. Chest pain Heart score 5-6 (moderate suspicion; nonspecific repolarization disturbance/significant ST deviation; age 45-64; >= 3 risk factors or history of atherosclerotic disease) Place on a monitored bed at progressive care unit Radiologist impression of chest x-ray: No acute cardiopulmonary process. Actual CXR image was independently visualized. No acute cardiopulmonary process was noted. Actual EKG tracing was independently visualized. Initial EKG showed ST depressions in leads V3 to V6. Repeat EKG at the emergent department showed resolution of ST depressions. Previous EKG in [address] depressions. Initial high-sensitivity troponin was 5; trend. Received aspirin 324 mg at the emergency department. ASA 81 mg p.o. daily ordered Morphine as needed for pain ordered We will check lipid panel. Statin: High intensity statin continued. Stat EKG as needed for chest pain Treadmill stress test in the AM if the cardiac enzymes are negative Hypertension Blood pressure is not within goal Losartan and atenolol continued continued. As needed hydralazine ordered. Trend blood pressure and adjust blood pressure medications as necessary. Hypothyroidism Synthroid continued. DVT prophylaxis Low risk on observation status. Visit Charges OBSV E&M: [id number] Initial observation care L3
--- NOTE | 2021-04-03 02:07 | EKG12_ITS ---
Test Reason : CP ADMIT Blood Pressure : / mmHG Vent. Rate : 081 BPM Atrial Rate : 081 BPM P-R Int : 130 ms QRS Dur : 084 ms QT Int : 386 ms P-R-T Axes : 067 015 049 degrees QTc Int : 448 ms Normal sinus rhythm Normal ECG Confirmed by TED GRIMM, ELIAN ([id number]), production editor MARYJANE HOWARD ([id number]) on 04/04/2021 1:54:14 PM Referred By: DR ABDULLAHI Confirmed By:ELIAN JEAN MD
[2021-04-03] MEDS: 0.9% Normal Saline 1,000 ML 75 ML IV (02:29)
[2021-04-03] MEDS: 0.9% Saline Lock 10 ML Syringe IV (02:30)
[2021-04-03 03:02] LABS: Troponin-I HS 4 pg/mL (3.0-54.0)
--- NOTE | 2021-04-03 03:11 | NURSING ---
pt said her shirt is missing. Called down to ed and they said left with a pt belonging bag. Pt will call him in am to verify. ed staff said nothing in room
[2021-04-03] MEDS: Losartan Potassium 25 MG Tablet 75 MG PO (04:37)
[2021-04-03] MEDS: Morphine 2 MG/ML Syringe IV (04:39)
--- NOTE | 2021-04-03 04:46 | NURSING ---
Called into pt room. C/o neck pain and that she could feel her heart beating. Pt c/o being very anxious at this time. Morphine given but pt would only take 1mg.
[2021-04-03 06:26] LABS: Absolute Lymphocyte Count 1.55 X10^3/uL (0.83-4.51); Absolute Neutrophil Count 3.2 X10^3/uL (2.0-7.7); Basophil# 0.01 X10^3/uL; Basophil% 0.2 % (0-1); Eosinophil# 0.07 X10^3/uL; Eosinophils% 1.4 % (0-5); Hematocrit 34.9 % (37-47); Hemoglobin 11.5 g/dL (12.0-15.0); Lymphocyte # 1.55 X10^3/ul (0.83-4.51); Lymphocyte % 30.2 % (19-41); Mean Corpuscular Hgb 28.3 pg (27.0-32.0); Mean Corpuscular Volume 85.7 fL (81-99); Mean Platelet Vol. 10.5 fl (6.2-12.0); Monocyte# 0.33 X10^3/uL; Monocyte% 6.4 % (0-10); NRBC Flagged by Analyzer 0 % (0-5); Neutrophil # 3.17 X10^3/uL (2.7-7.7); Neutrophil % 61.6 % (47-70); Platelet Count 257 K/mm3 (150-450); RBC Distribution Width CV 12.5 % (11.6-14.6); RBC Distribution Width SD 39.1 fl (35.1-43.9); Red Blood Count 4.07 M/mm3 (4.2-5.4); White Blood Count 5.1 K/mm3 (4.4-11.0)
[2021-04-03 06:51] LABS: Anion Gap 6 (5-15); BUN 11 mg/dL (7-18); Chloride 108 mmol/L (98-107); Cholesterol 189 mg/dL (200); Creatinine, Serum 0.73 mg/dL (0.55-1.02); EST Glomerular Filtration Rate 85 mL/min (>60); Est Glom Filt Rate - Afr Amer 103 mL/min (>60); Estimated Creatinine Clearance 84.68 ml/min; Glucose 102 mg/dL (74-106); High Density Lipoprotein 50 mg/dL; Potassium 3.8 mmol/L (3.5-5.1); Sodium Level 141 mmol/L (136-145); Triglycerides 104 mg/dL; Troponin-I HS 7 pg/mL (3.0-54.0); Very Low Density Lipoprotein 21 mg/dL (5-40)
[2021-04-03] MEDS: Pantoprazole Sodium 20 MG Tablet PO (10:47)
--- NOTE | 2021-04-03 11:10 | STRESSREP ---
Stress Test Report Treadmill myocardial perfusion stress test. Indication; 65-year-old patient with history of hypertension, hyperlipidemia, hypothyroidism and history of hiatal hernia She had symptoms of chest pain. And she has a prior evaluation with the stress echocardiogram. Treadmill myocardial perfusion study; Patient exercised according to standard Ervin protocol, for total of 6 minutes, achieving a work level of max METS of 7.0 The resting heart rate of 96 bpm, zina to a maximum heart rate of 153 bpm. This value represented 97% of the maximal age-predicted heart rate. The resting blood pressure of 158/90 mmHg, zina to a maximal blood pressure of 180/74 mmHg. Exercise test was stopped due to target heart rate achieved and symptoms of dyspnea also she had some epigastric and abdominal pain. Resting EKG reveals normal sinus rhythm. Stress EKG showed diffuse ST depression of at least 1 mm Arrhythmia: No arrhythmia demonstrated Myocardial perfusion protocol. [12 mCi ]of Technetium 99m Sestamibi was injected at rest. Following maximal stress, [34 0.2 mCi ]of Technetium 99m sestamibi was injected. Stress images were obtained stress and rest images were reconstructed and compared in the short axis vertical and horizontal long axis. Gated images were also obtained Perfusion SPECT analysis: Review of the images demonstrate normal uptake of sestamibi at rest, post stress images demonstrate similar uptake of sestamibi to the resting images, homogeneous tracer uptake With no evidence of reversible myocardial ischemia. Gated SPECT analysis: The gated ejection fraction is [ 89 %]. Wall motion showed hyperdynamic left ventricle. Conclusion: Negative treadmill sestamibi myocardial perfusion study for reversible myocardial ischemia/by scintigraphic views Hyperdynamic left ventricle. Patient has change in the EKG of diffuse ST depression of at least 1 mm, which persisted in recovery Tonya Lea MD,FACC,[facility]
--- NOTE | 2021-04-03 11:42 | PCM.DC ---
Discharge Instructions Diet Discharge Diet: No restrictions Activity Discharge Activity: Return to Normal Activity Weight Bearing Status: Weight bearing as tolerated Dressing / Incision Call your doctor if you observe: Fever of 101 or Higher, Numbness or Tingling, Shortness of breath, Dizziness, Chest pain, Increased palpitations (irregular heartbeat) and Calf discomfort Follow Up Care Please Follow Up With: Primary care provider When: Within the next two weeks. Test Results: Test results from this visit will be discussed in further detail at your follow-up appointment, if applicable. Discharge Plan Admission Admit Date/Time: 04/03/21 01:35 Primary Reason for Your Visit: Chest pain Attending Provider: Nya Conley Primary Care Provider: Patrizia Nova Discharge Orders/Prescriptions Prescriptions: Continued omeprazole 20 mg capsule,delayed release(DR/EC) 20 mg PO QDAY RF: 0 rosuvastatin 20 mg tablet 40 mg PO QDAY RF: 0 levothyroxine 75 mcg tablet 75 mcg PO DAILY RF: 0 coenzyme Q10 200 mg capsule 200 mg PO DAILY RF: 0 atenolol 25 mg tablet 25 mg PO DAILY RF: 0 losartan 100 mg tablet 75 mg PO DAILY RF: 0 Referrals / Follow Up: Patrizia Nova MD [Primary Care Provider] - Within 2 Weeks Disposition Disposition (needs filled in before D/C Order can be placed): Home, Self Care
--- NOTE | 2021-04-03 12:20 | PCM.DC.SUM ---
Documented by User: Johnny BENJAMIN 04/03/21 12:29 Providers Date of Admission: 04/03/21 Primary Care Physician: Dr. Patrizia Nova MD Reason For Visit: CHEST PAIN Diagnosis Discharge Diagnosis (1) Chest pain: Status: Acute Code(s): R07.9 - Chest pain, unspecified Qualifiers: Chest pain type: unspecified Qualified Code(s): R07.9 - Chest pain, unspecified Medications at Discharge Home Medications omeprazole 20 mg capsule,delayed release 20 mg PO QDAY 06/30/17 rosuvastatin 20 mg tablet 40 mg PO QDAY tab 07/05/18 levothyroxine 75 mcg tablet 75 mcg PO DAILY tab 07/04/19 atenolol 25 mg PO DAILY 04/02/21 coenzyme Q10 200 mg PO DAILY 04/02/21 losartan 100 mg PO DAILY 90 Days #90 tab 04/03/21 Hospital Course Procedures Stress test Summary of Care Provided Minutes Spent on Discharge: 35 Hospital Course: Disposition: Patient to be discharged home. 1) chest pain Patient reports chest pain from admission has resolved and denies development of any other new symptoms. Stress test demonstrated no evidence of myocardial ischemia or infarction. High-sensitivity troponins not elevated. Patient is to follow-up with her primary care provider within the next 2 weeks. 2) hypothyroidism Continue Synthroid. 3) HTN Blood pressure is elevated throughout admission will increase patient's losartan, continue atenolol. 4) hyperlipidemia Lipid panel unremarkable, continue rosuvastatin. 5) anxiety Patient admits to periods of anxiety, for which she is not being treated. Patient would like to meet with a psychiatrist on an outpatient basis. Patient seen by Johnny Ochoa PA-C, under the supervision of Dr. Conley. Physical Exam Narrative Patient is a 65-year-old female comfortably resting in bed, alert and orient x3. Reports resolution of chest pain and shortness of breath from admission. Denies development of any new symptoms overnight. Does not appear to be in acute distress. Const alert, oriented x3 and no apparent distress HEENT normocephalic, head/scalp atraumatic and hearing grossly normal bilaterally Eyes PERRL, EOMs intact bilaterally and conjunctivae normal Neck no lymphadenopathy, supple and no JVD Resp normal respiratory effort, no retractions and no use of accessory muscles Cardio regular rate, regular rhythm, no murmurs and no JVD GI normal to inspection, nondistended, normoactive bowel sounds, soft to palpation and non-tender Extremity normal to inspection, full ROM and no clubbing, cyanosis or edema Skin no rashes or lesions noted, no wounds and skin turgor normal Neuro CN's II-XII intact bilaterally Psych affect normal Weight / BMI Weight Weight: 149 lb 14.629 oz Body Mass Index (BMI) 31.3 ABG / Lab / Microbiology Data Result Diagrams: 04/03/21 06:18 04/03/21 06:18 Laboratory: Laboratory Results - last 24 hr 04/02/21 23:43: WBC 8.0, RBC 4.43, Hgb 12.5, Hct 37.8, MCV 85.3, MCH 28.2, MCHC 33.1, RDW Std Deviation 38.7, RDW Coeff of [place] 12.5, Plt Count 298, MPV 10.6, Immature Gran % (Auto) 0.300, Neut % (Auto) 60.4, Lymph % (Auto) 30.0, [place] % (Auto) 7.0, Eos % (Auto) 1.9, Baso % (Auto) 0.4, Absolute Neuts (auto) 4.8, Absolute Lymphs (auto) 2.40, Nucleated RBC % 0 04/02/21 23:43: Sodium 142, Potassium 3.5, Chloride 108 H, Carbon Dioxide 26.0, Anion Gap 8, BUN 14, Creatinine 0.78, Estim Creat Clear Calc 79.29, Est GFR (MDRD) Af Amer 96, Est GFR (MDRD) Non-Af 80, BUN/Creatinine Ratio 18.0, Glucose 112 H, Calcium 9.8, Troponin I High Sens 5 04/02/21 23:43: Magnesium 2.0 04/03/21 02:25: Troponin I High Sens 4 04/03/21 06:18: Sodium 141, Potassium 3.8, Chloride 108 H, Carbon Dioxide 27.0, Anion Gap 6, BUN 11, Creatinine 0.73, Estim Creat Clear Calc 84.68, Est GFR (MDRD) Af Amer 103, Est GFR (MDRD) Non-Af 85, BUN/Creatinine Ratio 15.0, Glucose 102, Calcium 9.0, Troponin I High Sens 7, Triglycerides 104, Cholesterol 189, LDL Cholesterol 118, VLDL Cholesterol 21, HDL Cholesterol 50 04/03/21 06:18: WBC 5.1, RBC 4.07 L, Hgb 11.5 L, Hct 34.9 L, MCV 85.7, MCH 28.3, MCHC 33.0, RDW Std Deviation 39.1, RDW Coeff of [place] 12.5, Plt Count 257, MPV 10.5, Immature Gran % (Auto) 0.200, Neut % (Auto) 61.6, Lymph % (Auto) 30.2, [place] % (Auto) 6.4, Eos % (Auto) 1.4, Baso % (Auto) 0.2, Absolute Neuts (auto) 3.2, Absolute Lymphs (auto) 1.55, Nucleated RBC % 0 Radiography Diagnostic Testing: Radiology Impression Chest X-Ray 04/02/21 23:44 IMPRESSION: No acute cardiopulmonary process. Electronically Signed: Glenroy Best MD at 1:03 EDT Tel , Service support , D/C Instructions Discharge Diet: No restrictions Weight Bearing Status: Weight bearing as tolerated Call your doctor if you observe: Fever of 101 or Higher, Numbness or Tingling, Shortness of breath, Dizziness, Chest pain, Increased palpitations (irregular heartbeat) and Calf discomfort Please Follow Up With: Primary care provider When: Within the next two weeks. Meaningful Use Info Meaningful Use Diagnoses (Choose all that apply): None applicable Discharge Plan Admission Admit Date/Time: 04/03/21 01:35 Primary Reason for Your Visit: Chest pain Attending Provider: Nya Conley Primary Care Provider: Patrizia Nova Discharge Orders/Prescriptions Prescriptions: New losartan 100 mg tablet 100 mg PO DAILY 90 Days Qty: 90 RF: 0 Continued omeprazole 20 mg capsule,delayed release(DR/EC) 20 mg PO QDAY RF: 0 rosuvastatin 20 mg tablet 40 mg PO QDAY RF: 0 levothyroxine 75 mcg tablet 75 mcg PO DAILY RF: 0 coenzyme Q10 200 mg capsule 200 mg PO DAILY RF: 0 atenolol 25 mg tablet 25 mg PO DAILY RF: 0 Discontinued losartan 100 mg tablet 75 mg PO DAILY RF: 0 Referrals / Follow Up: Patrizia Nova MD [Primary Care Provider] - Within 2 Weeks Disposition Disposition (needs filled in before D/C Order can be placed): Home, Self Care Documented by User: Dr. Nya Conley MD 04/03/21 13:17 Providers Date of Admission: 04/03/21 Reason For Visit: CHEST PAIN Medications at Discharge Home Medications omeprazole 20 mg capsule,delayed release 20 mg PO QDAY 06/30/17 rosuvastatin 20 mg tablet 40 mg PO QDAY tab 07/05/18 levothyroxine 75 mcg tablet 75 mcg PO DAILY tab 07/04/19 atenolol 25 mg PO DAILY 04/02/21 coenzyme Q10 200 mg PO DAILY 04/02/21 losartan 100 mg PO DAILY 90 Days #90 tab 04/03/21 ABG / Lab / Microbiology Data Result Diagrams: 04/03/21 06:18 04/03/21 06:18 Discharge Plan Admission Admit Date/Time: 04/03/21 01:35 Primary Reason for Your Visit: Chest pain Attending Provider: Nya Conley Primary Care Provider: Patrizia Nova Discharge Orders/Prescriptions Prescriptions: New losartan 100 mg tablet 100 mg PO DAILY 90 Days Qty: 90 RF: 0 Continued omeprazole 20 mg capsule,delayed release(DR/EC) 20 mg PO QDAY RF: 0 rosuvastatin 20 mg tablet 40 mg PO QDAY RF: 0 levothyroxine 75 mcg tablet 75 mcg PO DAILY RF: 0 coenzyme Q10 200 mg capsule 200 mg PO DAILY RF: 0 atenolol 25 mg tablet 25 mg PO DAILY RF: 0 Discontinued losartan 100 mg tablet 75 mg PO DAILY RF: 0 Referrals / Follow Up: Patrizia Nova MD [Primary Care Provider] - Within 2 Weeks Disposition Disposition (needs filled in before D/C Order can be placed): Home, Self Care Charges/Coding Addendum Addendum: This patient was seen in conjunction with SOURAV Hernandez. I have independently interviewed and examined the patient and reviewed pertinent historical, laboratory, and other data. Please refer to SOURAV Hernandez's note for his patient's presentation, findings, and recommendations. I have reviewed and his note and concur with his documentation 65-year-old female with past medical history of hypertension, hyperlipidemia, who comes in with complaints of chest discomfort. Patient's blood pressure was found to be elevated. Blood pressure was 189/83. EKG showed lateral T wave inversions. Patient was admitted to the telemetry floor and monitored on telemetry with no acute events. Troponins were negative. She underwent nuclear stress test that was unremarkable. Patient was seen and examined. She admits to feeling anxious. She admits to knowing when her blood pressure goes above 150. We discussed options for anxiety management. She prefers to see a therapist instead of taking medications. Physical Exam: Gen: Comfortable, not pale, not jaundiced CVS:HS I +II, regular, no murmurs RESP: CTA GI: BS present and normal, soft, nontender, no palpable organs EXT:No edema Visit Charges OBSV E&M: 59983 Observation care discharge
== END 2021-04-03 11:44 | disposition home or self-care (01) ==
LOC: ED 04-03 01:17 → PCU 04-03 01:43
PROVIDERS: Nurse Practitioner Family; Admitting Provider Hospitalist; Emergency Provider Emergency Medicine; PCP Internal Medicine; Visit Provider Internal Medicine
DX: R07.89 Other chest pain (principal); E03.9 Hypothyroidism, unspecified; F41.1 Generalized anxiety disorder; I10 Essential (primary) hypertension; E78.5 Hyperlipidemia, unspecified; Z79.899 Other long term (current) drug therapy; Z79.890 Hormone replacement therapy; R06.00 Dyspnea, unspecified; K21.9 Gastro-esophageal reflux disease without esophagitis; K44.9 Diaphragmatic hernia without obstruction or gangrene; E66.9 Obesity, unspecified; Z82.49 Family history of ischemic heart disease and other diseases of the circulatory system; Z68.31 Body mass index [BMI] 31.0-31.9, adult
CPT/HCPCS: 36415; 71045; 78452; 80048; 80061; 83735; 84484; 85025; 93005; 93017; 96361; 96374; 99218; 99285; A9500; J7030; A4216; G0378

== ENCOUNTER 2021-04-16 20:43 | Emergency (ER) | payer OTHER, SELFPAY ==
[2021-04-16 20:44] VITALS: BP 175/97; PULSE 93; RESP 14; TEMP 35.9; O2SAT 99; BMI 33.6
--- NOTE | 2021-04-16 20:55 | EKG12_ITS ---
Test Reason : CP Blood Pressure : / mmHG Vent. Rate : 093 BPM Atrial Rate : 093 BPM P-R Int : 134 ms QRS Dur : 086 ms QT Int : 380 ms P-R-T Axes : 062 012 056 degrees QTc Int : 472 ms Normal sinus rhythm Nonspecific ST and T wave abnormality Prolonged QT Abnormal ECG Confirmed by TED GRIMM, ELIAN ([id number]), international editorial producer MARYJANE HOWARD ([id number]) on 04/17/2021 11:26:37 AM Referred By: MYKEL Confirmed By:ELIAN JEAN MD
--- NOTE | 2021-04-16 20:55 | EDS_ITS ---
HPI History of Present Illness Chief Complaint: Chest Pain Informant: patient Onset/Context/Timing Onset: Hours Activity at onset: sudden and light activity Timing: Continuous Quality: Positive for Pressure Location: Substernal Current Severity: Mild Maximum Severity: Moderate Worsened By: Nothing Relieved By: Nothing Associated Symptoms: Positive for Nausea and Dyspnea; Negative for Vomiting, Diaphoresis, Cough, Fever, Lightheadedness, Acid Reflux and Palpitations Narrative Narrative: Patient is a 65-year-old female with history of paroxysmal supra tach tachycardia, essential hypertension, hyperlipidemia and hypothyroidism who presents with midsternal chest pressure that started at noon while playing outside with her grandkids and raking leaves. She has several episode was admitted last week. She was admitted because there was EKG changes from prior. Nuclear stress test was negative. Patient has had continuous pain. There are no alleviating, precipitating or exacerbating factors. She denies headache, visual, ocular auditory symptoms. She denies dyspnea on exertion. She is reported intermittent left trapezius pain for the past 3 weeks with associated paresthesia in her left hand. She denies trouble with speech or swallowing. She denies motor weakness. She denies problems with balance or walking. She denies paresthesia or anesthesia. Prior Similar Symptoms: Yes Recent Illness/Hospitalization: Yes CVD Risk Factors: Positive for Hypertension and Hypercholesterolemia; Negative for Diabetes, Family History 1' </=55 and Smoking PE Risk Factors: Negative for Recent Travel/Surgery, Recent Immobilization, Prior DVT or PE, Cancer and OCP + Smoking + >/=35 TAD Risk Factors: Positive for Hypertension; Negative for Marfan's Syndrome and Family History [facility] Medical History (Updated 04/16/21 @ 21:[address] Rachid Puente MD) Daytime somnolence Elevated blood-pressure reading without diagnosis of hypertension Essential (primary) hypertension Generalized anxiety disorder Hiatal hernia Hyperlipidemia Hypothyroid LPRD (laryngopharyngeal reflux disease) Mitral valve disorder Obesity (BMI 30.0-34.9) Paroxysmal supraventricular tachycardia Snoring Snoring Vitamin D deficiency Home Medications omeprazole 20 mg capsule,delayed release 20 mg PO QDAY 06/30/17 [History Last Taken 04/02/21] rosuvastatin 20 mg tablet 40 mg PO QDAY tab 07/05/18 [History Last Taken 04/02/21] levothyroxine 75 mcg tablet 75 mcg PO DAILY tab 07/04/19 [History Last Taken 04/02/21] atenolol 25 mg PO DAILY 04/02/21 [History Last Taken 04/02/21] coenzyme Q10 200 mg PO DAILY 04/02/21 [History Last Taken 04/02/21] losartan 100 mg PO DAILY 90 Days #90 tab 04/03/21 [Rx Last Taken Unknown] Allergy/AdvReac Type Severity Reaction Status Date / Time niacin AdvReac Shortness Verified 04/02/21 23:35 [From Niaspan of breath Extended-Release] Family History Mother Aortic aneurysm and dissection Brother Aortic aneurysm and dissection Other Marfan syndrome Surgical History History of bilateral breast reduction surgery (2009) History of History of carpal tunnel release History of left heart catheterization (2003) hx of tendon repair Social History (Updated 04/16/21 @ 20:[address] Rachid Puente MD) household members: spouse Smoking Status: Never smoker alcohol intake: current alcohol intake frequency: holidays/special occasions only substance use type: does not use ROS ROS ED Constitutional Constitutional ED: Denies chills, fever(s), subjective, sweats or weight loss Eyes Eyes: Reports none ENT ENT ED: Denies ear pain, rhinorrhea or sore throat Cardiovascular Cardiovascular: Reports as per HPI; Denies orthopnea or paroxysmal nocturnal dyspnea Respiratory/Chest Respiratory/Chest: Reports dyspnea; Denies cough, dyspnea on exertion, orthopnea, paroxysmal nocturnal dyspnea or sputum Gastrointestinal Gastrointestinal: Reports nausea; Denies abdominal pain, constipation, diarrhea, melena or vomiting Genitourinary Genitourinary ED: Denies dysuria, hematuria or urinary frequency Musculoskeletal Musculoskeletal: Denies arthralgias, back pain or myalgias Integumentary Denies rash Neurologic Neurologic: Denies paresthesias or weakness Hematologic/Lymphatic Hematologic/Lymphatic: Denies easy bleeding or easy bruising EXAM Physical Exam Const Vital Signs: 04/16/21 20:44 04/16/21 20:51 04/16/21 20:58 Temperature 96.7 F L Temperature Source Temporal Pulse Rate 93 Respiratory Rate 14 Respiratory Pattern Normal Blood Pressure 175/97 H Blood Pressure Mean 123 Pulse Ox 99 Oxygen Delivery Method Room Air Room Air Positive well nourished and well developed General Appearance ED: well developed and NAD; Negative for pallor HEENT Reports dry mucous membranes HEENT Narrative: Uvula is midline. There is no erythema or exudate in the posterior pharynx. normocephalic and atraumatic Mouth ED: Yes dry mucous membranes Mouth: dry mucous membranes Eyes PERRL and EOMs intact bilaterally General Eye ED: Negative for pale conjunctiva or scleral icterus Neck no lymphadenopathy, supple and no JVD Resp normal respiratory effort and clear to auscultation bilaterally Effort and Inspection: respiratory distress Cardio regular rate, regular rhythm, S1 normal heart sound, S2 normal heart sound and no murmurs GI normal to inspection, nondistended, normoactive bowel sounds, soft to palpation, non-tender and non-distended Back/Spine no CVA tenderness; Negative for no thoracic nor lumbar tenderness Extremity normal to inspection General Extremety ED: Negative for edema, pulses abnormal or tenderness General Extremity: Negative for edema or pulses abnormal Neuro oriented x3, CN's II-XII intact bilaterally and no sensory deficits noted Sensorium / Orientation: awake and alert Skin no rashes or lesions noted and no wounds General Skin Exam: Negative for jaundice or pallor Heart Score History: Slightly/Non-Suspicious ECG: Normal Age: >45 - <65 years Risk Factors: 1 or 2 Risk Factors Score: 2 MDM MDM MDM Narrative Medical decision making narrative: Patient presents with chest pain since noon. Will obtain EKG and troponin to look for acute evidence of ischemia on EKG and elevated troponin. Patient did have a recent nuclear stress test that was negative. This may be due to high blood pressure. She reports that her blood pressure was 200/100. She states her losartan dose was increased 200 mg from 75 mg. Lab Data Attestation: I reviewed the patient's lab results. Lab results narrative: 4. With 8 hours of continuous pain and a negative nuclear stress test last week presume the chest discomfort was related to her elevated blood pressure. Her pressure has improved. Her pain has resolved. Labs: Laboratory Results - last 24 hr 04/16/21 04/16/21 20:45 20:45 WBC 9.4 RBC 4.26 Hgb 12.2 Hct 36.5 L MCV 85.7 MCH 28.6 MCHC 33.4 RDW Std Deviation 39.0 RDW Coeff of [place] 12.7 Plt Count 288 MPV 11.1 Immature Gran % (Auto) 0.200 Neut % (Auto) 48.6 Lymph % (Auto) 40.1 [place] % (Auto) 8.3 Eos % (Auto) 2.2 Baso % (Auto) 0.6 Absolute Neuts (auto) 4.6 Absolute Lymphs (auto) 3.79 Nucleated RBC % 0 Sodium 141 Potassium 3.2 L Chloride 107 Carbon Dioxide 28.0 Anion Gap 6 BUN 17 Creatinine 0.84 Estim Creat Clear Calc 79.00 Est GFR (MDRD) Af Amer 88 Est GFR (MDRD) Non-Af 73 BUN/Creatinine Ratio 20.2 H Glucose 101 Calcium 9.8 Troponin I High Sens 4 Discharge Plan Triage Chief Complaint: Chest Pain ED Provider: Rachid Puente Dx/Rx/DC Orders Clinical Impression: Pressure in chest, Accelerated essential hypertension Instructions: ED Hypertension, Established Prescriptions: No Action omeprazole 20 mg capsule,delayed release(DR/EC) 20 mg PO QDAY RF: 0 rosuvastatin 20 mg tablet 40 mg PO QDAY RF: 0 levothyroxine 75 mcg tablet 75 mcg PO DAILY RF: 0 coenzyme Q10 200 mg capsule 200 mg PO DAILY RF: 0 atenolol 25 mg tablet 25 mg PO DAILY RF: 0 losartan 100 mg tablet 100 mg PO DAILY 90 Days Qty: 90 RF: 0 Primary Care Provider: Patrizia Nova Referrals: Patrizia Nova MD [Primary Care Provider] - 1-2 Weeks Disposition Disposition: Home, Self Care
[2021-04-16 21:14] LABS: Absolute Lymphocyte Count 3.79 X10^3/uL (0.83-4.51); Absolute Neutrophil Count 4.6 X10^3/uL (2.0-7.7); Basophil# 0.06 X10^3/uL; Basophil% 0.6 % (0-1); Eosinophil# 0.21 X10^3/uL; Eosinophils% 2.2 % (0-5); Hematocrit 36.5 % (37-47); Hemoglobin 12.2 g/dL (12.0-15.0); Lymphocyte # 3.79 X10^3/ul (0.83-4.51); Lymphocyte % 40.1 % (19-41); Mean Corp Hgb Conc 33.4 g/dL (32-36); Mean Corpuscular Hgb 28.6 pg (27.0-32.0); Mean Corpuscular Volume 85.7 fL (81-99); Mean Platelet Vol. 11.1 fl (6.2-12.0); Monocyte# 0.78 X10^3/uL; Monocyte% 8.3 % (0-10); NRBC Flagged by Analyzer 0 % (0-5); Neutrophil # 4.58 X10^3/uL (2.7-7.7); Neutrophil % 48.6 % (47-70); Platelet Count 288 K/mm3 (150-450); RBC Distribution Width CV 12.7 % (11.6-14.6); Red Blood Count 4.26 M/mm3 (4.2-5.4); White Blood Count 9.4 K/mm3 (4.4-11.0)
[2021-04-16 21:34] LABS: Anion Gap 6 (5-15); BUN 17 mg/dL (7-18); BUN/Creat Ratio 20.2 RATIO (10-20); Calcium,Total 9.8 mg/dL (8.5-10.1); Chloride 107 mmol/L (98-107); Creatinine, Serum 0.84 mg/dL (0.55-1.02); EST Glomerular Filtration Rate 73 mL/min (>60); Est Glom Filt Rate - Afr Amer 88 mL/min (>60); Glucose 101 mg/dL (74-106); Potassium 3.2 mmol/L (3.5-5.1); Sodium Level 141 mmol/L (136-145); Troponin-I HS 4 pg/mL (3.0-54.0)
[2021-04-16 22:00] VITALS: BP 125/77; PULSE 69; RESP 19; O2SAT 96
== END 2021-04-16 22:06 | disposition home or self-care (01) ==
PROVIDERS: Emergency Provider Emergency Medicine; PCP Internal Medicine
DX: R07.89 Other chest pain (principal); I10 Essential (primary) hypertension; I47.1 Supraventricular tachycardia; E03.9 Hypothyroidism, unspecified; E66.9 Obesity, unspecified; Z68.33 Body mass index [BMI] 33.0-33.9, adult; E78.00 Pure hypercholesterolemia, unspecified; E78.5 Hyperlipidemia, unspecified; F41.1 Generalized anxiety disorder; K21.9 Gastro-esophageal reflux disease without esophagitis; Z79.899 Other long term (current) drug therapy
CPT/HCPCS: 80048; 84484; 85025; 93005; 99283; J7030

== ENCOUNTER → 2021-05-13 08:06 | Outpatient (CLI) | payer OTHER, SELFPAY ==
--- NOTE | 2021-05-13 08:16 | BD_ITS ---
STUDY: DUAL ENERGY X-RAY ABSORPTIOMETRY / DXA REASON FOR EXAM: Female, 65 years old. M810. Patient is postmenopausal. TECHNIQUE: Bone Mineral Density (BMD) measurements of lumbar spine and bilateral hips were obtained. COMPARISON: Comparison is made with prior study 01/06/2018. FINDINGS: Lumbar Spine (L1-L4): g/cm2 (0.870) / T-score (-1.6) / Z-score (0.1) Findings are suggestive of osteopenia with a moderate fracture risk. Left Femur Total: g/cm2 (0.904) / T-score (-0.3) / Z-score (0.8) Left Femoral Neck: g/cm2 (0.641) / T-score (-1.9) / Z-score (-0.4) Right Femur Total: g/cm2 (0.845) / T-score (-0.8) / Z-score (0.4) Right Femoral Neck: g/cm2 (0.634) / T-score (-1.9) / Z-score (-0.5) The T-Scores on the most recent prior examination were: Lumbar Spine (L1-L4): There has been worsening of bone density since the previous examination. Left Femur Total: which represents a worsening of 0.6%. Right Femur Total: which represents a worsening of 1.7%. BD/Dexa Bone Density Study IMPRESSION: The patient is considered osteopenic as outlined below according to World Edy Organization (WHO) criteria with a moderate fracture risk. There has been worsening of bone density since the previous examination. Reference Information: The T-score is the number of standard deviations above or below the standard which is normal for young adults at their peak bone mineral density. The World Health Organization (WHO) interprets the T-scores as follows: Above -1 Normal bone density Between -1 and -2.5 Osteopenia Equal to / or below -2.5 Osteoporosis As a practical clinical guideline, osteopenia may be graded as follows: Mild -1 through -1.5 Moderate -1.6 through -2.0 Severe -2.1 through -2.4 The Z-score is the number of standard deviations above or below age-matched controls. A Z-score of less than -1.5 would be considered abnormal. References: 1. NIH Osteoporosis and Related Bone Diseases www osteo.org 2. International Society for Clinical Densitometry www iscd.org 3. National Osteoporosis Foundation www nof.org Electronically Signed: Az Ricardo MD at 11:03 EST , Service support ,
== END ==
PROVIDERS: PCP Internal Medicine; Referring Provider Clinical Nurse Specialist; Visit Provider Clinical Nurse Specialist
DX: Z13.820 Encounter for screening for osteoporosis (principal); Z78.0 Asymptomatic menopausal state
CPT/HCPCS: 77080

== ENCOUNTER → 2023-08-17 | Outpatient (CLI) | payer MEDICARE, OTHER, SELFPAY | END | disposition home or self-care (01) | LOC: LABSPEC 16:57 | PROVIDERS: PCP Internal Medicine; Referring Provider Otolaryngology Otolaryngology/Facial Plastic Surgery; Visit Provider Otolaryngology Otolaryngology/Facial Plastic Surgery | DX: J32.8 Other chronic sinusitis (principal) | CPT/HCPCS: 87070; 87205 ==